=== PATIENT | male | born 1950 | race Caucasian/White ===

== ENCOUNTER 2024-12-06 09:45 | Emergency (ER) | payer OTHER ==
[2024-12-06 10:20] VITALS: BP 142/60; PULSE 60; RESP 15; TEMP 98.6
[2024-12-06 13:31] LABS: HCV DIAGNOSTIC IN-HOUSE W/RFLX NON-REACTIVE (NONREACTIVE); HIV INTERPRETATION NEGATIVE (NEGATIVE)
== END 2024-12-06 10:17 | disposition home or self-care (01) ==
LOC: FER 09:45
DX: J04.0 Acute laryngitis (principal); J00 Acute nasopharyngitis [common cold]
CPT/HCPCS: 36415; 86618; 86803; 87389; 87637-QW; 99283-25